=== PATIENT | female | born 1995 | race Hispanic/Latino ===

== ENCOUNTER 2021-09-14 13:39 | Emergency (ER) | payer OTHER ==
[~2021-09-14] VITALS: Ht 154.9 cm; Wt 58.6 kg
[2021-09-14 19:10] VITALS: BP 108/76
== END 2021-09-14 19:11 | disposition home or self-care (01) ==
LOC: M ED 13:39
DX: J09.X2 Influenza due to identified novel influenza A virus with other respiratory manifestations (principal)